=== PATIENT | female | born 1970 | race Two or more races ===

== ENCOUNTER 2022-06-09 05:50 | Day surgery (SDC) | payer OTHER ==
[~2022-06-09 05:50] MED LIST: DIETHYLPROPION75 MG PO; DIOVAN160 M1 PO; LEXAPRO5 MG PO; TOPROL XL50 M1 PO; WEGOVY0.25 MG/0.
== END 2022-06-09 11:30 | disposition home or self-care (01) ==
LOC: CIR.AMB 05:50
PROVIDERS: ATTEND Obstetrics & Gynecology
DX: N95.0 Postmenopausal bleeding (principal); N93.9 Abnormal uterine and vaginal bleeding, unspecified; N70.11 Chronic salpingitis; E66.09 Other obesity due to excess calories; I10 Essential (primary) hypertension; Z20.822 Contact with and (suspected) exposure to COVID-19

== ENCOUNTER 2022-12-26 12:45 | Inpatient (IN) | payer OTHER ==
[~2022-12-26] VITALS: Ht 167.6 cm; Wt 95.3 kg
[2022-12-26] MEDS ORDERED: TOPROL XL100 M1 PO (15:51)
[2022-12-26] MEDS ORDERED: VALSART PO (15:51)
[2022-12-29] MEDS ORDERED: VALSARTAN80 MG (08:09)
[2022-12-30] MEDS ORDERED: ACETAMINOPHEN-1 EAC2 PO (09:06)
== END 2022-12-30 13:07 | disposition home or self-care (01) | DRG 743 ==
LOC: O/R 12-29 05:58 → SURG 12-29 07:00 → OB/GYN 12-29 15:41
PROVIDERS: ADMIT Obstetrics & Gynecology; ATTEND Obstetrics & Gynecology
PROC: 0UT74ZZ Resection of Bilateral Fallopian Tubes, Percutaneous Endoscopic Approach (ICD-10-PCS; 2022-12-29)
PROC: 0USG4ZZ Reposition Vagina, Percutaneous Endoscopic Approach (ICD-10-PCS; 2022-12-29)
PROC: 0UT94ZZ Resection of Uterus, Percutaneous Endoscopic Approach (ICD-10-PCS; principal; 2022-12-29 07:00)
DX: D25.2 Subserosal leiomyoma of uterus (principal); N72 Inflammatory disease of cervix uteri; Z20.822 Contact with and (suspected) exposure to COVID-19; D25.1 Intramural leiomyoma of uterus